=== PATIENT | female | born 1965 | race Native Hawaiian/Other Pacific Islander ===

== ENCOUNTER 2020-06-16 09:43 | Emergency (ER) | payer SELFPAY ==
--- NOTE | 2020-06-16 09:53 | Event Note ---
ED Screening Note Date of service: 06/16/20 Time: 09:51 ED Screening Note: This is a 55-year-old female who presents ED with lower abdominal pain status post a week. Patient was seen by primary care physician and sent to gastro neurologist on Friday. Patient states that after seeing gastroenterology she was given some medication and told to follow up with the ED if the pain got worse. Patient states she has not had a bowel movement since Friday and is having a lot of pain and discomfort in the lower abdomen. Mildly tender to palpation This initial assessment/diagnostic orders/clinical plan/treatment(s) is/are subject to change based on patients health status, clinical progression and re- assessment by fellow clinical providers in the ED. Further treatment and workup at subsequent clinical providers discretion. Patient/guardian urged not to elope from the ED as their condition may be serious if not clinically assessed and managed. Initial orders include: CT scan, basic labs
--- NOTE | 2020-06-16 10:14 | Emergency Department Report ---
ED Abdominal Pain HPI - General Chief Complaint: Abdominal Pain Stated Complaint: ABD PAIN/CONSTIPATION Time Seen by Provider: 06/16/20 09:52 Source: interpreter translator Mode of arrival: Ambulatory Limitations: Language Barrier - History of Present Illness Initial Comments: 55-year-old female presents to ED with complaint of constipation x4 days. Patient states she normally has bowel movements 2-3 times daily. Patient states her last bowel movement was 4 days ago. She reports associated lower abdominal pain, nausea and vomiting. Patient has not been eating due to the nausea. She reports her last full meal was 5 days ago. Since then, she has mostly been drinking fluids, but eating very little. Patient was seen by PCP who recommended that she take laxatives. Patient was seen by her GI doctor 2 days ago who prescribed Linzess, however patient reports she still has not had a bowel movement. She denies any fever. Patient reports previous episode of constipation approximately 1 month ago. MD Complaint: abdominal pain, other (constipation) -: days(s) (4) Location: suprapubic Radiation: none Migration to: no migration Severity: moderate Quality: aching Consistency: constant Improves With: nothing Worsens With: nothing Associated Symptoms: nausea, vomiting, constipation. denies: diarrhea, fever - Related Data Previous Rx's Medication Instructions Recorded Last Taken Type Azithromycin 500 mg PO QDAY #3 tablet 06/16/20 Unknown Rx Naproxen [Naprosyn] 500 mg PO BID #20 tablet 06/16/20 Unknown Rx Allergies Allergy/AdvReac Type Severity Reaction Status Date / Time No Known Allergies Allergy Unverified 06/16/20 09:44 ED Review of Systems ROS: Stated complaint: ABD PAIN/CONSTIPATION Other details as noted in HPI Comment: All other systems reviewed and negative Constitutional: denies: fever Gastrointestinal: abdominal pain, nausea, vomiting, constipation. denies: diarrhea Genitourinary: denies: dysuria, frequency ED Past Medical Hx - Past Medical History Previous Medical History?: No - Surgical History Past Surgical History?: No - Social History Smoking Status: Never Smoker Substance Use Type: None - Medications Home Medications: Home Medications Medication Instructions Recorded Confirmed Last Taken Type Azithromycin 500 mg PO QDAY #3 tablet 06/16/20 Unknown Rx Naproxen [Naprosyn] 500 mg PO BID #20 tablet 06/16/20 Unknown Rx ED Physical Exam - General Limitations: Language Barrier General appearance: alert, in no apparent distress - Head Head exam: Present: atraumatic, normocephalic - Eye Eye exam: Present: normal appearance, EOMI - ENT ENT exam: Present: mucous membranes moist - Neck Neck exam: Present: normal inspection - Respiratory Respiratory exam: Present: normal lung sounds bilaterally. Absent: respiratory distress - Cardiovascular Cardiovascular Exam: Present: normal rhythm, tachycardia - GI/Abdominal GI/Abdominal exam: Present: soft. Absent: distended, tenderness - Extremities Exam Extremities exam: Present: normal inspection - Neurological Exam Neurological exam: Present: alert, oriented X3 - Psychiatric Psychiatric exam: Present: normal affect, normal mood - Skin Skin exam: Present: warm, dry, intact, normal color ED Course Vital Signs 06/16/20 06/16/20 06/16/20 09:44 10:03 12:31 Temperature 98.3 F 97.8 F Pulse Rate 104 H 96 H 86 Respiratory 18 18 18 Rate Blood Pressure 110/98 Blood Pressure 189/96 178/92 [Left] O2 Sat by Pulse 104 H 99 98 Oximetry ED Medical Decision Making - Lab Data Result diagrams: 06/16/20 10:30 06/16/20 10:30 - Radiology Data Radiology results: report reviewed, image reviewed - Medical Decision Making 55-year-old female presents to ED with nausea, vomiting, abdominal pain, constipation. Patient has been seen by her PCP and GI for constipation. States she has not had a bowel movement in 4 days, however patient also admits that she has not been eating any solid food either secondary to her nausea. On exam abdomen is soft and nontender. Labs show normal WBC is with some mild elevations in her LFTs. CT scan shows evidence of fatty liver, however no other acute intra-abdominal finding. Of note, CT does show possibility of early atypical pneumonia in bilateral lung bases. Patient denies any fever, cough, shortness of breath, or known exposure to anyone who has tested positive for COV ID-19. Patient is not hypoxic, she is in no respiratory distress. Patient will be discharged home at this time with prescription for azithromycin. She has also been advised to obtain outpatient COVID-19 testing and to quarantine appropriately. Outpatient follow-up advised, return precautions given. - Differential Diagnosis bowel obstruction, constipation Critical care attestation.: If time is entered above; I have spent that time in minutes in the direct care of this critically ill patient, excluding procedure time. ED Disposition Clinical Impression: Abdominal pain, Atypical pneumonia, Hepatic steatosis, Hypertension Disposition: DC-01 TO HOME OR SELFCARE Is pt being admited?: No Condition: Stable Instructions: COVID-19, Abdominal Pain, Adult, [id number], Hypertension, Adult, [id number], Fatty Liver Disease, Community-Acquired Pneumonia, Adult, [id number], Abdominal Pain (ED), Hypertension (ED) Additional Instructions: It is recommended that you obtain outpatient COVID-19 testing. Your CAT scan shows possible early viral pneumonia. Your oxygen level is normal. Return to the ER is your symptoms worsen. Follow up with your primary care doctor to address your elevated blood pressure readings. Prescriptions: Azithromycin 500 mg PO QDAY #3 tablet Naproxen [Naprosyn] 500 mg PO BID #20 tablet Referrals: PRIMARY CARE, [Primary Care Provider] - 3-5 Days Time of Disposition: 12:32 Print Language: MOHAWK
[2020-06-16 11:07] LABS: Basophils % (Auto) 0.4 % (0.0-1.8); Eosinophils % (Auto) 0.2 % (0.0-4.3); Hematocrit 34.1 % (30.3-42.9); Lymphocytes # (Auto) 1.9 K/mm3 (1.2-5.4); Lymphocytes % (Auto) 16.6 % (13.4-35.0); Mean Corpuscular HGB Conc 32 % (30-34); Mean Corpuscular Volume 77 fl (79-97); Monocytes # (Auto) 1.1 K/mm3 (0.0-0.8); Monocytes % (Auto) 9.6 % (0.0-7.3); Platelet Count 258 K/mm3 (140-440); Red Blood Count 4.41 M/mm3 (3.65-5.03); Red Cell Distribution Width 18.4 % (13.2-15.2)
[2020-06-16 11:31] LABS: Alanine Aminotransferase 43 units/L (7-56); Albumin 3.9 g/dL (3.9-5); Blood Urea Nitrogen 15 mg/dL (7-17); Calcium 8.4 mg/dL (8.4-10.2); Hemolysis Index 4
[2020-06-16 11:37] LABS: BUN/Creatinine Ratio 21
--- NOTE | 2020-06-16 12:13 | Cat Scan Report ---
CT ABDOMEN AND PELVIS WITHOUT CONTRAST INDICATION: lower abd pain, constipation. TECHNIQUE: Axial CT images were obtained through the abdomen and pelvis without IV contrast. All CT scans at [facility] location are performed using CT dose reduction for ALARA by means of automated exposure control. COMPARISON: None available. FINDINGS: LOWER CHEST: Mild patchy groundglass parenchymal disease both lower lung rasmussen worrisome for atypica l viral pneumonia.[id number] LIVER: Moderate decreased attenuation throughout liver characteristic for steatosis with focal fatty sparing adjacent to gallbladder. GALLBLADDER: No significant abnormality. BILE DUCTS: No significant abnormality. PANCREAS: No significant abnormality. SPLEEN: No significant abnormality. ADRENALS: No significant abnormality. RIGHT KIDNEY and URETER: No significant abnormality. LEFT KIDNEY and URETER: No significant abnormality. STOMACH and SMALL BOWEL: No significant abnormality. COLON: Mild sigmoid diverticulosis without diverticulitis. APPENDIX: No significant abnormality. PERITONEUM: No free fluid. No free air. No fluid collection. LYMPH NODES: No significant adenopathy. AORTA and ARTERIES: No significant abnormality. IVC and VEINS: No significant abnormality. URINARY BLADDER: No significant abnormality. REPRODUCTIVE ORGANS: No significant abnormality. ADDITIONAL FINDINGS: None. SKELETAL SYSTEM: No significant abnormality. IMPRESSION: 1. Probable early bilateral lower lobe: Pneumonia. 2. Mild sigmoid diverticulosis without diverticulitis 3. Moderate hepatic steatosis Signer Name: Sudarshan David MD Signed: 06/16/2020 12:08 PM Workstation Name: [id number]
[2020-06-16 12:32] VITALS: BP 178/92
== END 2020-06-16 12:58 | disposition home or self-care (01) ==
LOC: ED 09:43
DX: R10.9 Unspecified abdominal pain (principal); J18.9 Pneumonia, unspecified organism; E88.89 Other specified metabolic disorders; K76.9 Liver disease, unspecified; I10 Essential (primary) hypertension; Z79.899 Other long term (current) drug therapy
CPT/HCPCS: 36415; 74176; 80053; 85025